=== PATIENT | male | born 1940 | race Two or more races ===

== ENCOUNTER 2021-04-23 20:44 | Emergency (ER) | payer OTHER, MEDICAID ==
[~2021-04-23] VITALS: Ht 167.6 cm; Wt 81.6 kg
[~2021-04-23 20:44] MED LIST: IBUP800T27
[2021-04-24] MEDS ORDERED: GENTAMICIN OPTH sol 0.3% 5ml EACHEYE ONE (01:00)
[2021-04-24 05:01] VITALS: BP 131/83
== END 2021-04-24 05:09 | disposition home or self-care (01) ==
LOC: ER 20:44
DX: H10.9 Unspecified conjunctivitis (principal); Z79.899 Other long term (current) drug therapy

== ENCOUNTER 2025-11-07 16:41 | Inpatient (IN) | payer OTHER, MEDICAID ==
[~2025-11-07] VITALS: Ht 167.6 cm; Wt 94.3 kg
[~2025-11-07 16:41] MED LIST changes: +IBUP-1456; -IBUP800T27
--- NOTE | 2025-11-07 17:15 | ED.PDOC ---
GI ASSESSMENT HPI Comments 85 y/o M, presents to the ED for CC of constipation. Patient states, he has been unable to have a bowel movement in x3days and is now experiencing diffuse abdominal pain. Patient reports, he was seen at Urgent Care for SS and was relayed to the ED for further evaluation and care. Patient denies nausea, vomiting, fever, or chills. No other symptoms or modifying factors are present at this time. Chief Complaint: Constipation Time Seen by MD: 17:00 Primary Care Provider: NONE Reviewed Notes: Nurses Notes, Medications, Allergies Allergies: Coded Allergies: NO KNOWN ALLERGIES (Unverified , 05/16/12) Home Meds Reported Medications Ibuprofen (Ibuprofen) 800 Mg Tab 05/16/12 Information Source: Patient Mode of Arrival: Wheelchair Timing: Days Duration: Since onset Prehospital treatment: None Vomitus: None Stool: Impaction Severity: Moderate Recent: None Recent Hx of: None Pain Location: Diffuse Modifying Factors: Nothing Associated sign and symptoms: Constipation, Abdominal Pain Past Medical History PAST MEDICAL HISTORY: Denies Family History Family History: Unknown Social History Smoker: Non-Smoker Alcohol: Occasionally Drugs: Denies Drug Use Lives In: Home Constitutional: denies: chills, diaphoresis, fatigue, fever, malaise, sweats, weakness, others EENTM: denies: blurred vision, double vision, ear bleeding, ear discharge, ear drainage, ear pain, ear ringing, eye pain, eye redness, hearing loss, mouth pain, mouth swelling, nasal discharge, nose bleeding, nose congestion, nose pain , photophobia, tearing, throat pain, throat swelling, voice changes, others Respiratory: denies: cough, hemoptysis, orthopnea, SOB at rest, shortness of breath, SOB with excertion, stridor, wheezing, others Cardiovascular: denies: chest pain, dizzy spells, diaphoresis, Dyspnea on exertion, edema, irregular heart beat, left arm pain, lightheadedness, palpitations, PND, syncope, others Gastrointestinal: reports: abdominal pain, constipated; denies: abdomen distended, blood streaked bowels, diarrhea, dysphagia, difficulty swallowing, hematemesis, melena, nausea, poor appetite, poor fluid intake, rectal bleeding, rectal pain, vomiting, others Genitourinary: denies: burning, dysuria, flank pain, frequency, hematuria, incontinence, penile discharge, penile sore, pain, testicle pain, testicle swelling, urgency, others Neurological: denies: dizziness, fainting, headache, left sided numbness, left sided weakness, numbness, paresthesia, pre-existing deficit, right sided numbness, right sided weakness, seizure, speech problems, tingling, tremors, weakness, others Musculoskeletal: denies: back pain, gout, joint pain, joint swelling, muscle pain, muscle stiffness, neck pain, others Integumetry: denies: bruises, change in color, change in hair/nails, dryness, laceration, lesions, lumps, rash, wounds, others Allergic/Immunocompromised: denies: Difficulty Healing, Frequent Infections, Hives, Itching, others Hematologic/Lymphatic: denies: anemia, blood clots, easy bleeding, easy bruising, swollen glands, others Endocrine: denies: excessive hunger, excessive sweating, excessive thirst, excessive urination, flushing, intolerance to cold, intolerance to heat, unexplained weight gain, unexplained weight loss, others Psychiatric: denies: anxiety, bipolar disorder, depression, hopeless, panic disorder, schizophrenia, sleepless, suicidal, others All Other Systems: Reviewed and Negative Physical Exam General Appearance: Moderate Distress HEENT: Normal ENT Inspection, Pharynx Normal, TMs Normal Neck: Full Range of Motion, Non-Tender, Normal, Normal Inspection Respiratory: Chest Non-Tender, Lungs Clear, No Accessory Muscle Use, No Respiratory Distress, Normal Breath Sounds Cardiovascular: No Edema, No JVD, No Murmur, No Gallop, Normal Peripheral P ulses, Regular Rate/Rhythm Breast Exam: Deferred Gastrointestinal: Distended, LLQ, No Organomegaly, No Pulsatile Mass, Normal Bowel Sounds, RLQ, Tenderness Genitalia: Deferred Pelvic: Deferred Rectal: Deferred Extremities: No calf tenderness, Normal capillary refill, No pedal edema Musculoskeletal : Apperance: Normal Neurologic: Alert, flat examiner II-XII nml as Tested, Motor Weakness, Normal Affect, Normal Mood, No Sensory Deficits Cerebellar Function: Normal Reflexes: Normal Skin: Dry, Normal Color, Warm Lymphatic: No Adenopathy Was a procedure done? Was a procedure done?: No GI differential Dx Differential Diagnosis: Bowel Obstruction, Constipation, Hernia X-Ray, Labs, Meds, VS Vital Signs Date Time Temp Pulse Resp B/P (MAP) Pulse Ox O2 Delivery O2 Flow Rate FiO2 11/07/25 18:42 89 15 148/86 11/07/25 18:18 87 99 Nasal Cannula* 2 28 11/07/25 18:17 97.9 87 15 148/78 (101) 99 97.9 11/07/25 16:52 98.1 93 20 160/100 92 98.1 Lab Test 11/07/25 17:30 Range/Units White Blood Count 7.7 4.4-10.8 10^3/uL Red Blood Count 4.90 4.5-5.90 10^6/uL Hemoglobin 15.6 13.5-17.5 g/dL Hematocrit 46.4 41.0-53.0 % Mean Corpuscular Volume 94.6 80.0-100.0 fL Mean Corpuscular Hemoglobin 31.8 28.0-32.0 pg Mean Corpuscular Hemoglobin Concent 33.6 32.0-36.0 g/dL Red Cell Distribution Width 13.8 11.8-14.3 % Platelet Count 156 140-450 10^3/uL Mean Platelet Volume 8.2 6.9-10.8 fL Neutrophils (%) (Auto) 67.0 37.0-80.0 % Lymphocytes (%) (Auto) 22.7 10.0-50.0 % Monocytes (%) (Auto) 9.5 0.0-12.0 % Eosinophils (%) (Auto) 0.4 0.0-7.0 % Basophils (%) (Auto) 0.4 0.0-2.0 % Neutrophils # (Auto) 5.2 1.6-8.6 10 ^3/uL Lymphocytes # (Auto) 1.7 0.4-5.4 10 ^3/uL Monocytes # (Auto) 0.7 0-1.3 10 ^3/uL Eosinophils # (Auto) 0 0-0.8 10 ^3/uL Basophils # (Auto) 0 0-0.2 10 ^3/uL Nucleated Red Blood Cells 0.1 % Sodium Level 136 136-145 mmol/L Potassium Level 3.4 L 3.5-5.1 mmol/L Chloride Level 100 98-107 mmol/L Carbon Dioxide Level 26 20-31 mmol/L Anion Gap 10 5-15 Blood Urea Nitrogen 7 L 9-23 mg/dL Creatinine 0.97 0.700-1.30 mg/dL Glomerular Filtration Rate Calc 77 >90 mL/min BUN/Creatinine Ratio 7.2 L 10.0-20.0 Serum Glucose 116 H 74-106 mg/dL Calcium Level 9.4 8.7-10.4 mg/dL Total Bilirubin 1.3 H 0.2-1.0 mg/dL Aspartate Amino Transferase (AST) 168 H 13-40 U/L Alanine Aminotransferase (ALT) 198 H 7-40 U/L Alkaline Phosphatase 253 H 46-116 U/L Total Protein 7.6 5.7-8.2 g/dL Albumin 4.2 3.2-4.8 g/dL Lipase 40 12-53 U/L Current Medications Medications (Trade) Dose Ordered Sig/Manny Route Start Time Stop Time Status Last Admin Ondansetron HCl (Zofran) 4 mg ONCE ONCE IV 11/07/25 17:15 11/07/25 17:16 DC 11/07/25 18:42 Morphine Sulfate 4 mg ONCE ONCE IV 11/07/25 17:15 11/07/25 17:16 DC 11/07/25 18:42 CT ABD PEL: FINDINGS: There is limited interpretation of the abdomen and pelvis without administration of intravenous contrast. Lung bases demonstrate atelectasis. Adrenal glands, spleen and pancreas unremarkable in shape. Liver punctate calcifications consistent with remote granulomatous disease. No CT evidence for cholelithiasis. No hydronephrosis/ nephrolithiasis. Stomach partially distended. Small bowel loops are normal in caliber. Large volume stool within the colon, especially descending and rectosigmoid colon. There is dilatation of the ascending colon, transverse colon up to 10 cm, possible early bowel pneumatosis. Normal appendix. Abdominal aortic atherosclerotic disease. Bladder distended. Prostate measures 6.3 cm transversely. No free pelvic fluid. No inguinal lymphadenopathy. [id number] bilateral sacroiliac degenerative joint disease. Fat containing left inguinal hernia measuring 2.7 x 1.9 cm. [id number] bilateral sacroiliac degenerative joint disease. Moderate to advanced thoracolumbar degenerative disc disease. Old posterior left 12th, 11th rib fractures. IMPRESSION: Limited evaluation without contrast. Large volume stool within the colon especially within the descending and rectosigmoid colon which can be secondary to constipation/ ileus. Correlate with clinical symptoms. There is marked distention of the ascending and transverse colon up to 10 cm and possibly early bowel pneumatosis. Correlate clinically to exclude ischemia. Recommend CT angiogram of the abdomen/pelvis to further evaluate and surgical evaluation. Atherosclerotic disease. Prostatomegaly. Correlate with PSA levels. Other findings as described. At this time, the patient has a CBC done which is within normal limits The chemistry panel is within normal limits accept for elevated enzymes with a total bilirubin of 1.3 The patient is being admitted The patient was given morphine for the pain and Zofran for the nausea The patient understands and agrees with the management Images Reviewed?: Images reviewed and evaluated by me Time of 1ST Reevaluation: 17:30 Reevaluation 1ST: Unchanged Patient Education/Counseling: Diagnosis, Treatment, Prognosis Family Education/Counseling: Diagnosis, Treatment, Prognosis SEPSIS Sepsis Screen Date sepsis recognized/suspect: Nov 07, 2025 Time Sepsis recognized/suspect: 1652 Recent Procedure: No On Antibiotic Therapy: No Respiratory Rate >20: No Heart Rate >90: No Temp<36 C (96.8 F) or >38.3 C: No SBP <90 or MAP <65 mmHG: No New Acute Mental Status Change: No Is the patient on CPAP, BIPAP,: No Physician Orders Urinalysis (11/07/25 17:13) Ct Ab Pel Wo Con-No Oral Or Iv (11/07/25 17:13) Heplock Iv (11/07/25 17:13) Vital Signs Date Time Temp Pulse Resp B/P (MAP) Pulse Ox O2 Delivery O2 Flow Rate FiO2 11/07/25 18:42 89 15 148/86 11/07/25 18:18 87 99 Nasal Cannula* 2 28 11/07/25 18:17 97.9 87 15 148/78 (101) 99 97.9 11/07/25 16:52 98.1 93 20 160/100 92 98.1 Laboratory Tests Test 11/07/25 17:30 White Blood Count 7.7 10^3/uL (4.4-10.8) Medications Medications Dose Ordered Sig/Manny Route Start Time Stop Time Status Last Admin Dose Admin Morphine Sulfate 4 mg ONCE ONCE IV 11/07/25 17:15 11/07/25 17:16 DC 11/07/25 18:42 Ondansetron HCl 4 mg ONCE ONCE IV 11/07/25 17:15 11/07/25 17:16 DC 11/07/25 18:42 Departure 1 Departure Time of Disposition: 18:57 Impression: Primary Impression: Intractable abdominal pain Additional Impressions: Fecal impaction Partial bowel obstruction Qualified Codes: K56.600 - Partial intestinal obstruction, unspecified as to cause Disposition: 09 ADMITTED INPATIENT Admit to: Med Surg Condition: Fair Critical Care Note Critical Care Time?: No Stability Stability form required: Yes Unstable for transfer: ED Physician Assesment (Clinical assesment) Heart Score Heart Score: Heart Score Response (Comments) Value History N/A 0 EKG N/A 0 Age N/A 0 Risk Factors N/A 0 Troponin N/A 0 Total 0 I personally scribed for MERRILL JUSTIN MD ([email or web address]) on 11/07/25 at 17:15. Electronically submitted by Marjorie Obando ([email or web address]). I personally scribed for MERRILL JUSTIN MD ([email or web address]) on 11/07/25 at 18:30. Electronically submitted by Marjorie Obando ([email or web address]). MERRILL JUSTIN MD Nov 07, 2025 17:15
[2025-11-07 17:40] LABS: Hematocrit 46.4 % (41.0-53.0); Hemoglobin 15.6 g/dL (13.5-17.5); Mean Corpuscular Hemoglobin 31.8 pg (28.0-32.0); Mean Corpuscular Volume 94.6 fL (80.0-100.0); Nucleated Red Blood Cells % 0.1 %
[2025-11-07 17:56] LABS: Albumin 4.2 g/dL (3.2-4.8); Anion Gap 10 (5-15); BUN/Creatinine Ratio 7.2 (10.0-20.0); Calcium 9.4 mg/dL (8.7-10.4); Carbon Dioxide 26 mmol/L (20-31); Chloride 100 mmol/L (98-107); Lipase 40 U/L (12-53); Total Protein 7.6 g/dL (5.7-8.2)
[2025-11-07 17:57] LABS: Alanine Aminotransferase 198 U/L (7-40); Alkaline Phosphatase 253 U/L (46-116); Bilirubin, Total 1.3 mg/dL (0.2-1.0); Blood Urea Nitrogen 7 mg/dL (9-23); Glucose 116 mg/dL (74-106); Potassium 3.4 mmol/L (3.5-5.1); Sodium 136 mmol/L (136-145)
--- NOTE | 2025-11-07 18:13 | DVH ---
INDICATION: pain TECHNIQUE: CT axial images of the abdomen and pelvis are obtained without contrast. Coronal and sagittal reformats were obtained. Radiation Dose Information: CTDI volume is 24.22 mGy. Dose-length product is 1259.61 mGy*cm COMPARISON: None FINDINGS: There is limited interpretation of the abdomen and pelvis without administration of intravenous contrast. Lung bases demonstrate atelectasis. Adrenal glands, spleen and pancreas unremarkable in shape. Liver punctate calcifications consistent with remote granulomatous disease. No CT evidence for cholelithiasis. No hydronephrosis/ nephrolithiasis. Stomach partially distended. Small bowel loops are normal in caliber. Large volume stool within the colon, especially descending and rectosigmoid colon. There is dilatation of the ascending colon, transverse colon up to 10 cm, possible early bowel pneumatosis. Normal appendix. Abdominal aortic atherosclerotic disease. Bladder distended. Prostate measures 6.3 cm transversely. No free pelvic fluid. No inguinal lymphadenopathy. [id number] bilateral sacroiliac degenerative joint disease. Fat containing left inguinal hernia measuring 2.7 x 1.9 cm. [id number] bilateral sacroiliac degenerative joint disease. Moderate to advanced thoracolumbar degenerative disc disease. Old posterior left 12th, 11th rib fractures. IMPRESSION: Limited evaluation without contrast. Large volume stool within the colon especially within the descending and rectosigmoid colon which can be secondary to constipation/ ileus. Correlate with clinical symptoms. There is marked distention of the ascending and transverse colon up to 10 cm and possibly early bowel pneumatosis. Correlate clinically to exclude ischemia. Recommend CT angiogram of the abdomen/pelvis to further evaluate and surgical evaluation. Atherosclerotic disease. Prostatomegaly. Correlate with PSA levels. Other findings as described.
[2025-11-07 18:18] VITALS: PULSE 87; O2SAT 99
[2025-11-07] MEDS: MORPHINE SULFATE 4 MG/ML SYR/VIAL IV ONE (18:42)
[2025-11-07] MEDS: ONDANSETRON HCL 4 MG/2 ML VIAL IV ONE (18:42)
[2025-11-07] MEDS: SODIUM CHLORIDE 0.9% 500 ML IVB ONE (19:20)
[2025-11-07 19:29] LABS: Urine Protein, UAD Negative (Negative)
[2025-11-07 20:30] VITALS: PULSE 89; O2SAT 98
[2025-11-07] MEDS ORDERED: ONDANSETRON HCL 4 MG/2 ML VIAL IV PRN (21:15)
--- NOTE | 2025-11-07 21:29 | DVHHP2 ---
History of Present Illness Reason for Visit: Intractable abdominal pain History of Present Illness The patient is a 85-year-old male with past medical history of depression and hypertension who presented to [facility] ED with complaint of constipation. Patient reports that he has been experiencing difficulty to have bowel movement for the past 3 days associated with diffuse abdominal pain. Patient reports, he was seen at Urgent Care for similar symptoms with no relief and was sent to the ED for further evaluation. Patient was seen and evaluated in the ED, laboratory data shows WBC 7.7, platelets 156, sodium 136, potassium 3.4, BUN 7, creatinine 0.97, GFR 77, glucose 116, calcium 9.4, lipase 40, total bilirubin 1.3, AST 168, ALT 198, alkaline phos 253, blood pressure 135/85, heart rate 85, temperature 97.9 F, O2 saturation 99% on oxygen. Abdomen/pelvis CT revealing large volume stool within the colon especially within the descending and rectosigmoid colon which can be secondary to constipation/ileus. Please see medication orders section in the computer. On my assessment, patient denied chest pain, no headache, dizziness, diaphoresis, currently on oxygen, no diarrhea, nausea, vomiting, fever, no chills. Patient was admitted for further evaluation and medical management. Past Medical History Depression, Hyperlipidemia Past Surgical History Denies all surgeries Family History Reviewed, noncontributory to the management of this case. Past Social History The patient lives at home, denies smoking, alcohol or illicit drugs abuse. Review of Systems Constitutional: No: Fever, Chills, Sweats, Weakness, Malaise, Other Eyes: No: Pain, Vision change, Conjunctivae inflammation, Eyelid inflammation, Other, Redness ENT: No: Ear pain, Ear discharge, Nose pain, Nose discharge, Nose congestion, Mouth pain, Mouth swelling, Throat pain, Throat swelling, Other Respiratory: No: Cough, Dry, Shortness of breath, SOB with excertion, Wheezing, Hemoptysis, Pleuritic Pain, Sputum, Wheezing, Other Cardiovascular: No: Chest Pain, Palpitations, Orthopnea, Paroxysmal Noc. Dyspnea, Edema, Lt Headedness, Other Gastrointestinal: Abdominal Pain, Constipation; No: Nausea, Vomiting, Diarrhea, Melena, Hematochezia, Other Genitourinary: No Dysuria, No Frequency, No Incontinence, No Hematuria, No Retention, No Other Musculoskeletal: No: other, neck pain, shoulder pain, arm pain, back pain, hand pain, leg pain, foot pain Skin: No: Rash, Lesions, Jaundice, Bruising, Other Neurological: No: Weakness, Numbness, Incoordination, Change in speech, Confusion, Seizures, Other Allergies: Coded Allergies: NO KNOWN ALLERGIES (Unverified , 05/16/12) Medications Current Medications Medications Dose Ordered Sig/Manny Route Start Time Stop Time Status Last Admin Dose Admin Tamsulosin HCl 0.4 mg QPM PO 11/08/25 18:00 UNV Duloxetine HCl 60 mg DAILY PO 11/08/25 10:00 UNV Trazodone HCl 50 mg HS PO 11/07/25 22:00 UNV Atorvastatin Calcium 40 mg HS PO 11/07/25 22:00 UNV Clopidogrel Bisulfate 75 mg DAILY PO 11/08/25 10:00 UNV Ibuprofen 400 mg Q6HP PRN PO 11/07/25 21:15 UNV Sodium Chloride 1,000 ml @ 60 mls/hr [id number] IV 11/07/25 21:15 UNV Ondansetron HCl 4 mg Q4HP PRN IV 11/07/25 21:15 UNV Docusate Sodium 100 mg BIDPRN PRN PO 11/07/25 21:15 UNV Exam Vital Signs Vital Signs Date Time Temp Pulse Resp B/P (MAP) Pulse Ox O2 Delivery O2 Flow Rate FiO2 11/07/25 19:12 85 15 135/85 11/07/25 18:18 99 Nasal Cannula* 2 28 11/07/25 18:17 97.9 97.9 General Appearance: Alert, Oriented X3, Cooperative, No acute distress HEENT: Atraumatic, PERRLA, EOMI, Mucous membr. moist/pink Respiratory: Normal air movement Cardiovascular: Regular rate, Normal S1, Normal S2, No murmurs Abdominal: Normal bowel sounds, Soft, No hepatospenomegaly, No masses, Other (Reports tenderness) Extremities: No clubbing, No cyanosis, No edema, Normal pulses, No tenderness/swelling Skin: No rashes, No significant lesion Neuro: Normal speech, Normal tone, Sensation intact, Cranial nerves 3-12 NL, Reflexes 2+, Other (Generalized weakness) Psych/Mental Status: Mental status NL, Mood NL Labs/Xrays Labs Test 11/07/25 18:54 11/07/25 17:30 Range/Units Urine Color Yellow Yellow Urine Clarity Clear Clear Urine pH 6.5 5.0-9.0 Urine Specific [place] 1.019 1.001-1.035 Urine Protein Negative Negative Urine Ketones Negative Negative Urine Blood Negative Negative /uL Urine Nitrite Negative Negative Urine Bilirubin Negative Negative Urine Urobilinogen 6 Negative mg/dL Urine Leukocyte Esterase Negative Negative /uL Urine RBC 2 0 - 3 /hpf Urine Microscopic WBC 1 0-3 /HPF Urine Squamous Epithelial Cells Few <5 /hpf Urine Bacteria None seen None Seen /hpf Urine Hyaline Casts Few 0 - 2 /lpf Urine Glucose Normal Normal mg/dL White Blood Count 7.7 4.4-10.8 10^3/uL Red Blood Count 4.90 4.5-5.90 10^6/uL Hemoglobin 15.6 13.5-17.5 g/dL Hematocrit 46.4 41.0-53.0 % Mean Corpuscular Volume 94.6 80.0-100.0 fL Mean Corpuscular Hemoglobin 31.8 28.0-32.0 pg Mean Corpuscular Hemoglobin Concent 33.6 32.0-36.0 g/dL Red Cell Distribution Width 13.8 11.8-14.3 % Platelet Count 156 140-450 10^3/uL Mean Platelet Volume 8.2 6.9-10.8 fL Neutrophils (%) (Auto) 67.0 37.0-80.0 % Lymphocytes (%) (Auto) 22.7 10.0-50.0 % Monocytes (%) (Auto) 9.5 0.0-12.0 % Eosinophils (%) (Auto) 0.4 0.0-7.0 % Basophils (%) (Auto) 0.4 0.0-2.0 % Neutrophils # (Auto) 5.2 1.6-8.6 10 ^3/uL Lymphocytes # (Auto) 1.7 0.4-5.4 10 ^3/uL Monocytes # (Auto) 0.7 0-1.3 10 ^3/uL Eosinophils # (Auto) 0 0-0.8 10 ^3/uL Basophils # (Auto) 0 0-0.2 10 ^3/uL Nucleated Red Blood Cells 0.1 % Sodium Level 136 136-145 mmol/L Potassium Level 3.4 L 3.5-5.1 mmol/L Chloride Level 100 98-107 mmol/L Carbon Dioxide Level 26 20-31 mmol/L Anion Gap 10 5-15 Blood Urea Nitrogen 7 L 9-23 mg/dL Creatinine 0.97 0.700-1.30 mg/dL Glomerular Filtration Rate Calc 77 >90 mL/min BUN/Creatinine Ratio 7.2 L 10.0-20.0 Serum Glucose 116 H 74-106 mg/dL Calcium Level 9.4 8.7-10.4 mg/dL Total Bilirubin 1.3 H 0.2-1.0 mg/dL Aspartate Amino Transferase (AST) 168 H 13-40 U/L Alanine Aminotransferase (ALT) 198 H 7-40 U/L Alkaline Phosphatase 253 H 46-116 U/L Total Protein 7.6 5.7-8.2 g/dL Albumin 4.2 3.2-4.8 g/dL Lipase 40 12-53 U/L PATIENT: ARIELLE EDWARDS ACCT: [id number] UNIT: [id number] : 1940 LOC: ER ROOM / BED: / AGE / SEX: 85 / M ADM STATUS: REG ER SERVICE 1713 ORDERING PHYSICIAN: MERRILL JUSTIN MD PROCEDURE(s): ABPL - CT AB PEL WO CON-NO ORAL OR IV REASON: pain ORDER NUMBER(s): [id number], ACCESSION NUMBER(s): [id number] INDICATION: pain TECHNIQUE: CT axial images of the abdomen and pelvis are obtained without contrast. Coronal and sagittal reformats were obtained. Radiation Dose Information: CTDI volume is 24.22 mGy. Dose-length product is 1259.61 mGy*cm COMPARISON: None FINDINGS: There is limited interpretation of the abdomen and pelvis without administration of intravenous contrast. Lung bases demonstrate atelectasis. Adrenal glands, spleen and pancreas unremarkable in shape. Liver punctate calcifications consistent with remote granulomatous disease. No CT evidence for cholelithiasis. No hydronephrosis/ nephrolithiasis. Stomach partially distended. Small bowel loops are normal in caliber. Large volume stool within the colon, especially descending and rectosigmoid colon. There is dilatation of the ascending colon, transverse colon up to 10 cm, possible early bowel pneumatosis. Normal appendix. Abdominal aortic atherosclerotic disease. Bladder distended. Prostate measures 6.3 cm transversely. No free pelvic fluid. No inguinal lymphadenopathy. [id number] bilateral sacroiliac degenerative joint disease. Fat containing left inguinal hernia measuring 2.7 x 1.9 cm. [id number] bilateral sacroiliac degenerative joint disease. Moderate to advanced thoracolumbar degenerative disc disease. Old posterior left 12th, 11th rib fractures. IMPRESSION: Limited evaluation without contrast. Large volume stool within the colon especially within the descending and rectosigmoid colon which can be secondary to constipation/ ileus. Correlate with clinical symptoms. There is marked distention of the ascending and transverse colon up to 10 cm and possibly early bowel pneumatosis. Correlate clinically to exclude ischemia. Recommend CT angiogram of the abdomen/pelvis to further evaluate and surgical evaluation. Atherosclerotic disease. Prostatomegaly. Correlate with PSA levels. Other findings as described. SEPSIS Sepsis Screen Date sepsis recognized/suspect: Nov 07, 2025 Time Sepsis recognized/suspect: 18:15 Recent Procedure: No On Antibiotic Therapy: No Respiratory Rate >20: No Heart Rate >90: No Temp<36 C (96.8 F) or >38.3 C: No SBP <90 or MAP <65 mmHG: No New Acute Mental Status Change: No Is the patient on CPAP, BIPAP,: No Physician Orders Ct Ab Pel Wo Con-No Oral Or Iv (11/07/25 17:13) Heplock Iv (11/07/25 17:13) Tamsulosin Hydrochloride (Flomax) (11/08/25 18:00) Duloxetine Hcl Capsule (Cymbalta Capsule (11/08/25 10:00) Trazodone Hcl (Desyrel) (11/07/25 22:00) Atorvastatin (Lipitor) (11/07/25 22:00) Potassium Er Tablet (Klor-Con Tablet) (11/07/25 21:15) Clopidogrel Bisulfate (Plavix) (11/08/25 10:00) Ibuprofen Tablet (Motrin Tablet) (11/07/25 21:15) Allergies (11/07/25 21:08) Code Status (11/07/25 21:08) Sodium Chloride 0.9% (11/07/25 21:15) Oxygen Per Hour (11/07/25 21:08) Ondansetron Hcl (Zofran) (11/07/25 21:15) Docusate Sodium Capsule (Colace Capsule) (11/07/25 21:15) Fall Risk Precautions In Place QSHIFT (11/07/25 21:08) Complete Blood Count (11/08/25 04:00) Comprehensive Metabolic Panel (11/08/25 04:00) Cardiac Diet-2gna,Lofat,Lochol (11/08/25 Breakfast) Condition: Serious (11/07/25 21:08) Maintain Bed Rest (11/07/25 21:08) Sequential Compression Device (11/07/25 ) Admit (11/07/25 21:27) Nitroglycerin Sublingual (Ntrostat Subli (11/07/25 21:30) Morphine Sulfate Injection (11/07/25 21:30) Notify Of Changes From Base (11/07/25 21:27) Emergency Dysrhythmia Protocol (11/07/25 21:27) Oxygen By Nasal Cannula (11/07/25 21:27) Vital Signs Date Time Temp Pulse Resp B/P (MAP) Pulse Ox O2 Delivery O2 Flow Rate FiO2 11/07/25 19:12 85 15 135/85 11/07/25 18:42 89 15 148/86 11/07/25 18:18 87 99 Nasal Cannula* 2 28 11/07/25 18:17 97.9 87 15 148/78 (101) 99 97.9 11/07/25 16:52 98.1 93 20 160/100 92 98.1 Laboratory Tests Test 11/07/25 17:30 White Blood Count 7.7 10^3/uL (4.4-10.8) Medications Medications Dose Ordered Sig/Manny Route Start Time Stop Time Status Last Admin Dose Admin Morphine Sulfate 4 mg ONCE ONCE IV 11/07/25 17:15 11/07/25 17:16 DC 11/07/25 18:42 4 MG Ondansetron HCl 4 mg ONCE ONCE IV 11/07/25 17:15 11/07/25 17:16 DC 11/07/25 18:42 4 MG Sodium Chloride 500 ml @ 500 mls/hr Q1H ONCE IVB 11/07/25 17:15 11/07/25 18:14 DC 11/07/25 19:20 500 MLS/HR Assessment/Plan Assessment/Plan Intractable abdominal pain Fecal impaction Partial bowel obstruction Ileus, unspecified Constipation Elevated liver enzymes Partial intestinal obstruction, unspecified as to cause Plan 1. Admit to med surge unit 2. Breathing treatment 3. Pain control management 4. Management of fluids and electrolytes 5. Consultation for surgery/hospitalist 6. Diagnostic tests abdomen/pelvis CT 7. DVT prophylaxis on SCDs 8. Repeat labs CBC, CMP in a.m. 9. Continue with current medical management 10. Treatment plan discussed with patient and RN. Patient verbalized understanding. Plan discussed with: Patient, Other (RN) My Orders Orders - KITTY MATHUR DNP Procedure Category Date Status Time Tamsulosin PHA 11/08/25 Logged Hydrochloride (Flomax) 18:00 Duloxetine Hcl PHA 11/08/25 Logged Capsule (Cymbalta 10:00 Trazodone Hcl PHA 11/07/25 Logged (Desyrel) 22:00 Atorvastatin (Lipitor) PHA 11/07/25 Logged 22:00 Potassium Er Tablet PHA 11/07/25 Logged (Klor-Con Tablet) 21:15 Clopidogrel Bisulfate PHA 11/08/25 Logged (Plavix) 10:00 Ibuprofen Tablet PHA 11/07/25 Logged (Motrin Tablet) 21:15 Allergies VIOLETTE 11/07/25 In Process 21:08 Code Status CODE 11/07/25 Transmitted 21:08 Sodium Chloride 0.9% PHA 11/07/25 Logged 21:15 Oxygen Per Hour RT 11/07/25 Transmitted 21:08 Ondansetron Hcl PHA 11/07/25 Logged (Zofran) 21:15 Docusate Sodium PHA 11/07/25 Logged Capsule (Colace 21:15 Fall Risk Precautions VIOLETTE 11/07/[address] 21:08 Complete Blood Count LAB 11/08/25 Verified 04:00 Comprehensive LAB 11/08/25 Verified Metabolic Panel 04:00 Cardiac DIET 11/08/25 Transmitted Diet-2gna,Lofat,Lochol Breakfast Condition: Serious VIOLETTE 11/07/25 In Process 21:08 Maintain Bed Rest VIOLETTE 11/07/25 In Process 21:08 Sequential VIOLETTE 11/07/25 In Process Compression Device Admit ADMIT 11/07/25 Verified 21:27 Nitroglycerin PHA 11/07/25 Verified Sublingual (Ntrostat 21:30 Morphine Sulfate PHA 12/18/25 Verified Injection 21:30 Notify Of Changes VIOLETTE 11/07/25 Verified From Base 21:27 Emergency Dysrhythmia VIOLETTE 11/07/25 Verified Protocol 21:27 Oxygen By Nasal RT 11/07/25 Verified Cannula 21:27 Problem List: (1) Intractable abdominal pain (2) Fecal impaction (3) Partial bowel obstruction (4) Ileus, unspecified (5) Constipation (6) Elevated liver enzymes (7) Partial intestinal obstruction, unspecified as to cause Date of Service: Nov 07, 2025 Billing Provider: KITTY MATHUR DNP Common Visit Codes: [id number] INP/OBS CARE (HIGH) KITTY MATHUR DNP Nov 07, 2025 21:29
[2025-11-07] MEDS ORDERED: MORPHINE SULFATE INJ 2 MG/ml SYRG IV PRN (21:30)
[2025-11-07] MEDS ORDERED: NITROGLYCERIN 0.4 MG SL TAB SL PRN (21:30)
[2025-11-07] MEDS: POTASSIUM CHL 20 Meq TABLET PO ONE (21:48)
[2025-11-07] MEDS: SODIUM CHLORIDE 0.9% 1,000 ML IV SCH (22:00)
[2025-11-07] MEDS: ATORVASTATIN 20 MG TAB PO SCH (22:09)
[2025-11-07] MEDS: IBUPROFEN 400 MG TAB PO PRN (23:34)
[2025-11-08] VITALS (9 sets, daily range): BP systolic 111–135; BP diastolic 72–84; PULSE 70–86; RESP 16–19; TEMP 97.1–98.3; O2SAT 92–97
[2025-11-08] MEDS: DOCUSATE SOD 100 MG CAP PO PRN (01:49)
[2025-11-08 06:57] LABS: Hematocrit 39.1 % (41.0-53.0); Hemoglobin 13.4 g/dL (13.5-17.5); Mean Corpuscular Hemoglobin 32.1 pg (28.0-32.0); Mean Corpuscular Volume 93.9 fL (80.0-100.0); Nucleated Red Blood Cells % 0.2 %
[2025-11-08 07:19] LABS: Anion Gap 9 (5-15); BUN/Creatinine Ratio 7.4 (10.0-20.0); Carbon Dioxide 28 mmol/L (20-31); Chloride 104 mmol/L (98-107); Glucose 95 mg/dL (74-106); Potassium 4.1 mmol/L (3.5-5.1); Sodium 141 mmol/L (136-145); Total Protein 5.9 g/dL (5.7-8.2)
[2025-11-08 07:20] LABS: Albumin 3.3 g/dL (3.2-4.8); Bilirubin, Total 0.9 mg/dL (0.2-1.0)
[2025-11-08 07:22] LABS: Alanine Aminotransferase 161 U/L (7-40); Alkaline Phosphatase 199 U/L (46-116); Blood Urea Nitrogen 7 mg/dL (9-23); Calcium 8.5 mg/dL (8.7-10.4)
[2025-11-08 09:09] LABS: INR 0.97 (0.9-1.15); Partial Thromboplastin Time 28.1 SEC (24.5-34.5); Prothrombin Time 10.3 sec (9.3-11.8)
[2025-11-08] MEDS: CLOPIDOGREL BISULFATE 75 MG TAB PO SCH (10:35)
[2025-11-08] MEDS: FLEET ENEMA(ADULT) 135 ML PR ONE ×2 (10:37→14:46)
[2025-11-08] MEDS ORDERED: ATOR-47 PO (11:04)
[2025-11-08] MEDS ORDERED: DULO1CAP6 PO (11:04)
[2025-11-08] MEDS ORDERED: TAMS0.4C39 PO (11:04)
[2025-11-08] MEDS ORDERED: ACET-1881 PO (11:04)
[2025-11-08] MEDS ORDERED: TRAZ-228 PO (11:04)
[2025-11-08] MEDS ORDERED: SENN-105 PO (11:04)
[2025-11-08] MEDS ORDERED: CLOP75TA70 (11:04)
[2025-11-08] MEDS ORDERED: FURO40TA4 PO (11:04)
[2025-11-08] MEDS ORDERED: DOCU-265 PO (11:04)
[2025-11-08] MEDS ORDERED: CHOL20007 OR (11:07)
--- NOTE | 2025-11-08 12:13 | DVHPN2 ---
Reviewed: Care Plan, H&P, Labs, Medications, Previous Orders, Radiology Changes from previous H/P or p: No Changes Eyes: No Pain, No Vision change, No Conjunctivae inflammation, No Eyelid inflammation, No Other, No Redness ENT: No Ear pain, No Ear discharge, No Nose pain, No Nose discharge, No Nose congestion, No Mouth pain, No Mouth swelling, No Throat pain, No Throat swelling, No Other Cardiovascular: No Chest Pain, No Palpitations, No Orthopnea, No Paroxysmal Noc. Dyspnea, No Edema, No Lt Headedness, No Other Respiratory: No Cough, No Dry, No Shortness of breath, No SOB with excertion, No Wheezing, No Hemoptysis, No Pleuritic Pain, No Sputum, No Other Gastrointestinal: No Nausea, No Vomiting; Abdominal Pain; No Diarrhea; C onstipation; No Melena, No Hematochezia, No Other Genitourinary: No Dysuria, No Frequency, No Incontinence, No Hematuria, No Retention, No Other Musculoskeletal: No other, No neck pain, No shoulder pain, No arm pain, No back pain, No hand pain, No leg pain, No foot pain Skin: No Rash, No Lesions, No Jaundice, No Bruising, No Other Objective Vitals Vital Signs Date Time Temp Pulse Resp B/P (MAP) Pulse Ox O2 Delivery O2 Flow Rate FiO2 11/08/25 08:40 97.6 75 17 127/72 (90) 97 97.6 11/08/25 00:01 Room Air* 0 21 Intake/Output Intake and Output 11/08/25 07:00 Intake Total 1040 ml Output Total 350 ml Balance 690 ml Intake Oral 480 ml IV Total 560 ml Output Urine Total 350 ml Medications Current Medications Medications Dose Ordered Sig/Manny Route Start Time Stop Time Status Last Admin Dose Admin Tamsulosin HCl 0.4 mg QPM PO 11/08/25 18:00 Duloxetine HCl 60 mg DAILY PO 11/08/25 10:00 11/08/25 10:35 60 MG Trazodone HCl 50 mg HS PO 11/07/25 22:00 11/07/25 22:10 50 MG Atorvastatin Calcium 40 mg HS PO 11/07/25 22:00 11/07/25 22:09 40 MG Clopidogrel Bisulfate 75 mg DAILY PO 11/08/25 10:00 11/08/25 10:35 75 MG Ibuprofen 400 mg Q6HP PRN PO 11/07/25 21:15 11/07/25 23:34 400 MG Sodium Chloride 1,000 ml @ 60 mls/hr [id number] IV 11/07/25 21:15 11/07/25 22:00 60 MLS/HR Ondansetron HCl 4 mg Q4HP PRN IV 11/07/25 21:15 Docusate Sodium 100 mg BIDPRN PRN PO 11/07/25 21:15 11/08/25 01:49 100 MG Nitroglycerin 0.4 mg Q5MINP PRN SL 11/07/25 21:30 Morphine Sulfate 2 mg Q30M PRN IV 11/07/25 21:30 Laboratory Results Laboratory Tests 11/08/25 06:01 Chemistry Test 11/07/25 17:30 11/08/25 06:01 Albumin 4.2 g/dL (3.2-4.8) 3.3 g/dL (3.2-4.8) Calcium Level 9.4 mg/dL (8.7-10.4) 8.5 mg/dL (8.7-10.4) L Total Protein 7.6 g/dL (5.7-8.2) 5.9 g/dL (5.7-8.2) Coagulation Test 11/08/25 06:01 Prothrombin Time 10.3 sec (9.3-11.8) Prothrombin Time INR 0.97 (0.9-1.15) Activated Partial Thromboplast Time 28.1 SEC (24.5-34.5) Lipid panel Test 11/07/25 17:30 Lipase 40 U/L (12-53) LFT Test 11/07/25 17:30 11/08/25 06:01 Alanine Aminotransferase (ALT) 198 U/L (7-40) H 161 U/L (7-40) H Alkaline Phosphatase 253 U/L (46-116) H 199 U/L (46-116) H Aspartate Amino Transferase (AST) 168 U/L (13-40) H 130 U/L (13-40) H Total Bilirubin 1.3 mg/dL (0.2-1.0) H 0.9 mg/dL (0.2-1.0) Urinalysis Test 11/07/25 18:54 Urine Color Yellow (Yellow) Urine Clarity Clear (Clear) Urine pH 6.5 (5.0-9.0) Urine Specific [place] 1.019 (1.001-1.035) Urine Protein Negative (Negative) Urine Ketones Negative (Negative) Urine Blood Negative /uL (Negative) Urine Nitrite Negative (Negative) Urine Bilirubin Negative (Negative) Urine Urobilinogen 6 mg/dL (Negative) Urine Leukocyte Esterase Negative /uL (Negative) Urine RBC 2 /hpf (0 - 3) Urine Microscopic WBC 1 /HPF (0-3) Urine Squamous Epithelial Cells Few /hpf (<5) Urine Bacteria None seen /hpf (None Seen) Urine Hyaline Casts Few /lpf (0 - 2) Urine Glucose Normal mg/dL (Normal) Labs and/or images reviewed: Labs reviewed by me, Image(s) reviewed by me Assessment/Plan Assessment/Plan Intractable abdominal pain Fecal impaction status post enema Partial bowel obstruction surgical consult, GI consult Ileus, unspecified Constipation Cholesterol BPH Elevated liver enzymes gallbladder ultrasound Partial intestinal obstruction, unspecified as to cause Patient lives alone Time Spent 68 minutes Advanced care planning time 20 minutes Patient is full code Plan discussed with: Patient Date of Service: Nov 08, 2025 Billing Provider: KAHLIL TRAN MD Common Visit Codes: [id number] CARE 30-74 MIN KAHLIL TRAN MD Nov 08, 2025 12:13
--- NOTE | 2025-11-08 12:32 | DVHINCON2 ---
GI Consult Consult Note GI consult note Date of Consultation: 11/08/2025 Chief Complaint: Constipation/abdominal pain Referring Physician: Dr. Kitty Tran H&P: 85-year-old Lithuanian-speaking male, family at bedside translating, admitted with complains of constipation and abdominal distention. Patient admits to not having bowel movement for the past four days. Patient has history of constipation usually treated with Colace which helps him. No nausea or vomiting . Unsure if colonoscopy in past. No melena or red blood in stool. Denies fevers or chills Past Medical History: Depression, hyperlipidemia Past Surgical History: Denies Social History: NO smoking, drinking ETOH and use of illegal drugs. Family History: Noncontributory Review of Systems: Constitutional: no fever, chill, weight loss HEENT: no eye pain, no hearing loss, no oral lesion, no scleral icterus Heart: no chest pain, no chest pressure Lung: no cough, no dyspnea with exertion Abdomen: see HPI Physical exam: General: NAD, AAOX3 Chest: lung villanue[place] clear to auscultation Heart: RRR, no murmur Abdomen: Moderate-distended, minimal generalized tenderness to palpation, + hyperactive BS Labs: Labs Test 11/08/25 06:01 11/07/25 18:54 11/07/25 17:30 Range/Units White Blood Count 6.3 4.4-10.8 10^3/uL Red Blood Count 4.16 L 4.5-5.90 10^6/uL Hemoglobin 13.4 L 13.5-17.5 g/dL Hematocrit 39.1 #L 41.0-53.0 % Mean Corpuscular Volume 93.9 80.0-100.0 fL Mean Corpuscular Hemoglobin 32.1 H 28.0-32.0 pg Mean Corpuscular Hemoglobin Concent 34.2 32.0-36.0 g/dL Red Cell Distribution Width 14.0 11.8-14.3 % Platelet Count 132 L 140-450 10^3/uL Mean Platelet Volume 8.4 6.9-10.8 fL Neutrophils (%) (Auto) 55.0 37.0-80.0 % Lymphocytes (%) (Auto) 26.2 10.0-50.0 % Monocytes (%) (Auto) 16.8 H 0.0-12.0 % Eosinophils (%) (Auto) 1.5 0.0-7.0 % Basophils (%) (Auto) 0.5 0.0-2.0 % Neutrophils # (Auto) 3.5 1.6-8.6 10 ^3/uL Lymphocytes # (Auto) 1.6 0.4-5.4 10 ^3/uL Monocytes # (Auto) 1.1 0-1.3 10 ^3/uL Eosinophils # (Auto) 0.1 0-0.8 10 ^3/uL Basophils # (Auto) 0 0-0.2 10 ^3/uL Nucleated Red Blood Cells 0.2 % Prothrombin Time 10.3 9.3-11.8 sec Prothrombin Time INR 0.97 0.9-1.15 Activated Partial Thromboplast Time 28.1 24.5-34.5 SEC Sodium Level 141 # 136-145 mmol/L Potassium Level 4.1 3.5-5.1 mmol/L Chloride Level 104 98-107 mmol/L Carbon Dioxide Level 28 20-31 mmol/L Anion Gap 9 5-15 Blood Urea Nitrogen 7 L 9-23 mg/dL Creatinine 0.95 0.700-1.30 mg/dL Glomerular Filtration Rate Calc 78 >90 mL/min BUN/Creatinine Ratio 7.4 L 10.0-20.0 Serum Glucose 95 74-106 mg/dL Calcium Level 8.5 L 8.7-10.4 mg/dL Total Bilirubin 0.9 0.2-1.0 mg/dL Aspartate Amino Transferase (AST) 130 H 13-40 U/L Alanine Aminotransferase (ALT) 161 H 7-40 U/L Alkaline Phosphatase 199 H 46-116 U/L Total Protein 5.9 5.7-8.2 g/dL Albumin 3.3 3.2-4.8 g/dL Urine Color Yellow Yellow Urine Clarity Clear Clear Urine pH 6.5 5.0-9.0 Urine Specific [place] 1.019 1.001-1.035 Urine Protein Negative Negative Urine Ketones Negative Negative Urine Blood Negative Negative /uL Urine Nitrite Negative Negative Urine Bilirubin Negative Negative Urine Urobilinogen 6 Negative mg/dL Urine Leukocyte Esterase Negative Negative /uL Urine RBC 2 0 - 3 /hpf Urine Microscopic WBC 1 0-3 /HPF Urine Squamous Epithelial Cells Few <5 /hpf Urine Bacteria None seen None Seen /hpf Urine Hyaline Casts Few 0 - 2 /lpf Urine Glucose Normal Normal mg/dL Lipase 40 12-53 U/L Imaging: CT abdomen pelvis IMPRESSION: Limited evaluation without contrast. Large volume stool within the colon especially within the descending and rectosigmoid colon which can be secondary to constipation/ ileus. Correlate with clinical symptoms. There is marked distention of the ascending and transverse colon up to 10 cm and possibly early bowel pneumatosis. Correlate clinically to exclude ischemia. Recommend CT angiogram of the abdomen/pelvis to further evaluate and surgical evaluation. Atherosclerotic disease. Prostatomegaly. Correlate with PSA levels. Other findings as described. Assessment: Abdominal pain Fecal impaction Partial bowel obstruction Ileus Elevated liver enzyme Plan: Discussed with Dr. Alex RODRIGUEZ MiraLax NPO If needed NGT to LIS Abdominal ultrasound And hepatitis panel for elevated LFTs We will continue to monitor patient Plan discussed with patient, family at bedside and RN Thank you for this consult Date of Service: Nov 08, 2025 Billing Provider: ANISA TRAN Common Visit Codes: CONSULT ONLY Consultation Codes: [id number] CONSULT <60MIN ANISA TRAN Nov 08, 2025 12:32
--- NOTE | 2025-11-08 12:40 | DVHINCON2 ---
Date of service: Nov 08, 2025 History of Present Illness 85-year-old male with a history of constipation admitted secondary to no bowel movement for past four days with the abdominal distention and pain. Patient denies any fevers, chills, nausea or vomiting. This morning patient had a large BM. Past Medical History Depression Past Surgical History No recent abdominal surgery Family History: Patient reports no known family medical history. Family History Noncontributory Social History No alcohol, tobacco, IV drug use Allergies: Coded Allergies: NO KNOWN ALLERGIES (Unverified , 05/16/12) Home Meds Reported Medications Cholecalciferol (VITAMIN D3) 2,000 Unit Tab, 2000 UNIT OR, TAB 11/08/25 Furosemide (Furosemide) 40 Mg Tab, 1 TAB PO DAILY, #30 TAB 5 Refills 11/08/25 Acetaminophen (Acetaminophen) 325 Mg Tab, 1 TAB PO Q8HPRN PRN for PAIN SCALE 1-3 OR TEMP>100.4 11/08/25 Atorvastatin Calcium (ATORVASTATIN CALCIUM) 80 Mg Tab, 1 TAB PO 11/08/25 Clopidogrel Bisulfate (CLOPIDOGREL) 75 Mg Tab 11/08/25 Tamsulosin Hcl (Tamsulosin Hcl) 0.4 Mg Cap, 1 CAP PO DAILY 11/08/25 Docusate Sodium (Docusate Sodium) 100 Mg Cap, 1 CAP PO TID PRN for FOR CONSTIPATION 11/08/25 Trazodone Hcl (Trazodone Hcl) 100 Mg Tab, 0.5 TAB PO QHSP PRN for FOR INSOMNIA 11/08/25 Senna (Senna) 8.6 Mg Tab, 2 TAB PO 11/08/25 Duloxetine HCl (Duloxetine HCl) 60 Mg Cap, 1 CAP PO DAILY 11/08/25 Ibuprofen (Ibuprofen) 800 Mg Tab 05/16/12 Current Medications Current Medications Medications (Trade) Dose Ordered Sig/Manny Route PRN Reason Start Time Stop Time Status Last Admin Tamsulosin HCl (Flomax) 0.4 mg QPM PO 11/08/25 18:00 Duloxetine HCl (Cymbalta Capsule) 60 mg DAILY PO 11/08/25 10:00 11/08/25 10:35 Trazodone HCl (Desyrel) 50 mg HS PO 11/07/25 22:00 11/07/25 22:10 Atorvastatin Calcium (Lipitor) 40 mg HS PO 11/07/25 22:00 11/07/25 22:09 Clopidogrel Bisulfate (Plavix) 75 mg DAILY PO 11/08/25 10:00 11/08/25 10:35 Ibuprofen (Motrin Tablet) 400 mg Q6HP PRN PO PAIN SCALE 1-3 OR TEMP>100.4 11/07/25 21:15 11/07/25 23:34 Sodium Chloride 1,000 ml @ 60 mls/hr [id number] IV 11/07/25 21:15 11/07/25 22:00 Ondansetron HCl (Zofran) 4 mg Q4HP PRN IV NAUSEA / VOMITING 11/07/25 21:15 Docusate Sodium (Colace Capsule) 100 mg BIDPRN PRN PO FOR CONSTIPATION 11/07/25 21:15 11/08/25 01:49 Nitroglycerin (Ntrostat Sublingual) 0.4 mg Q5MINP PRN SL FOR CHEST PAIN 11/07/25 21:30 Morphine Sulfate 2 mg Q30M PRN IV FOR CHEST PAIN 11/07/25 21:30 Vital Signs Vital Signs Date Time Temp Pulse Resp B/P (MAP) Pulse Ox O2 Delivery O2 Flow Rate FiO2 11/08/25 12:34 97.3 83 17 135/84 (101) 93 97.3 11/08/25 00:01 Room Air* 0 21 Physical Exam GEN: Age-appropriate male in no acute distress. Alert. HEENT: Normocephalic atraumatic. Moist mucous membranes. Anicteric sclerae. CV: RRR Respiratory: CTAB ABD: Obese abdomen with moderate distention. Soft. Nontender. CT of the abdomen and pelvis: Marked distention of the ascending and transverse colon up to 10 cm with possible early bowel pneumatosis. Large volume stool within the colon especially the within the descending and rectosigmoid colon. Labs/Diagnostic Data Labs Test 11/08/25 06:01 11/07/25 18:54 11/07/25 17:30 Range/Units White Blood Count 6.3 4.4-10.8 10^3/uL Red Blood Count 4.16 L 4.5-5.90 10^6/uL Hemoglobin 13.4 L 13.5-17.5 g/dL Hematocrit 39.1 #L 41.0-53.0 % Mean Corpuscular Volume 93.9 80.0-100.0 fL Mean Corpuscular Hemoglobin 32.1 H 28.0-32.0 pg Mean Corpuscular Hemoglobin Concent 34.2 32.0-36.0 g/dL Red Cell Distribution Width 14.0 11.8-14.3 % Platelet Count 132 L 140-450 10^3/uL Mean Platelet Volume 8.4 6.9-10.8 fL Neutrophils (%) (Auto) 55.0 37.0-80.0 % Lymphocytes (%) (Auto) 26.2 10.0-50.0 % Monocytes (%) (Auto) 16.8 H 0.0-12.0 % Eosinophils (%) (Auto) 1.5 0.0-7.0 % Basophils (%) (Auto) 0.5 0.0-2.0 % Neutrophils # (Auto) 3.5 1.6-8.6 10 ^3/uL Lymphocytes # (Auto) 1.6 0.4-5.4 10 ^3/uL Monocytes # (Auto) 1.1 0-1.3 10 ^3/uL Eosinophils # (Auto) 0.1 0-0.8 10 ^3/uL Basophils # (Auto) 0 0-0.2 10 ^3/uL Nucleated Red Blood Cells 0.2 % Prothrombin Time 10.3 9.3-11.8 sec Prothrombin Time INR 0.97 0.9-1.15 Activated Partial Thromboplast Time 28.1 24.5-34.5 SEC Sodium Level 141 # 136-145 mmol/L Potassium Level 4.1 3.5-5.1 mmol/L Chloride Level 104 98-107 mmol/L Carbon Dioxide Level 28 20-31 mmol/L Anion Gap 9 5-15 Blood Urea Nitrogen 7 L 9-23 mg/dL Creatinine 0.95 0.700-1.30 mg/dL Glomerular Filtration Rate Calc 78 >90 mL/min BUN/Creatinine Ratio 7.4 L 10.0-20.0 Serum Glucose 95 74-106 mg/dL Calcium Level 8.5 L 8.7-10.4 mg/dL Total Bilirubin 0.9 0.2-1.0 mg/dL Aspartate Amino Transferase (AST) 130 H 13-40 U/L Alanine Aminotransferase (ALT) 161 H 7-40 U/L Alkaline Phosphatase 199 H 46-116 U/L Total Protein 5.9 5.7-8.2 g/dL Albumin 3.3 3.2-4.8 g/dL Urine Color Yellow Yellow Urine Clarity Clear Clear Urine pH 6.5 5.0-9.0 Urine Specific [place] 1.019 1.001-1.035 Urine Protein Negative Negative Urine Ketones Negative Negative Urine Blood Negative Negative /uL Urine Nitrite Negative Negative Urine Bilirubin Negative Negative Urine Urobilinogen 6 Negative mg/dL Urine Leukocyte Esterase Negative Negative /uL Urine RBC 2 0 - 3 /hpf Urine Microscopic WBC 1 0-3 /HPF Urine Squamous Epithelial Cells Few <5 /hpf Urine Bacteria None seen None Seen /hpf Urine Hyaline Casts Few 0 - 2 /lpf Urine Glucose Normal Normal mg/dL Lipase 40 12-53 U/L Assessment 1. Severe obstipation slowly improving Plan/Recommendation 1. Continue bowel regimen. Plan discussed with: Patient JUAN CARLOS SANTSO MD Nov 08, 2025 12:40
--- NOTE | 2025-11-08 13:01 | DVH ---
INDICATION: elevated LFTs TECHNIQUE: Multiple real-time sonographic images were obtained of the right upper quadrant. COMPARISON: None FINDINGS: The liver demonstrates heterogeneous echotexture without focal mass lesions. There is no intrahepatic or extrahepatic ductal dilatation. The common duct measures 6.2 mm. The gallbladder is without evidence of stone or sludge. The gallbladder wall measures 2.9 mm and is within normal limits. The right kidney measures 9.8 cm. The right kidney is normal in contour, size, and shape. The echogenicity is normal. There is no hydronephrosis. The pancreas is not well visualized due to overlying bowel gas. IMPRESSION: 1. No sonographic evidence of gallstones or acute cholecystitis. 2. Hepatic steatosis.
[2025-11-08 13:30] LABS: Hepatitis A Total Antibody Positive (Negative); Hepatitis B Surface Antigen Negative (Negative); Hepatitis C Antibody Negative (Negative)
[2025-11-08] MEDS: POLYETHYLENE GLYCOL 17 GM PWDR PO ONE (14:46)
--- NOTE | 2025-11-08 16:21 | DVH ---
Date: 11/08/2025 03:22 PM Examination: XY KUB ABDOMEN SINGLE VIEW History: abd pain constipation COMPARISON: None TECHNIQUE: Frontal views of the abdomen was obtained. FINDINGS: Bowel gas pattern is unremarkable. The lung bases are unremarkable. No acute osseous abnormality identified. Bony spondylosis and degenerative disc changes IMPRESSION: 1. Nonobstructive bowel gas pattern. 2. Scattered stool throughout the colon may represent constipation
[2025-11-08] MEDS: TAMSULOSIN HYDROCHLORIDE 0.4 MG CAP PO SCH (18:19)
[2025-11-09] VITALS (7 sets, daily range): BP systolic 112–147; BP diastolic 73–95; PULSE 67–80; RESP 16–18; TEMP 97.3–98; O2SAT 93–97
--- NOTE | 2025-11-09 10:08 | DVHPN2 ---
Reviewed: Care Plan, H&P, Labs, Medications, Previous Orders, Radiology Changes from previous H/P or p: No Changes Eyes: No Pain, No Vision change, No Conjunctivae inflammation, No Eyelid inflammation, No Other, No Redness ENT: No Ear pain, No Ear discharge, No Nose pain, No Nose discharge, No Nose congestion, No Mouth pain, No Mouth swelling, No Throat pain, No Throat swelling, No Other Cardiovascular: No Chest Pain, No Palpitations, No Orthopnea, No Paroxysmal Noc. Dyspnea, No Edema, No Lt Headedness, No Other Respiratory: No Cough, No Dry, No Shortness of breath, No SOB with excertion, No Wheezing, No Hemoptysis, No Pleuritic Pain, No Sputum, No Other Gastrointestinal: No Nausea, No Vomiting; Abdominal Pain; No Diarrhea; C onstipation; No Melena, No Hematochezia, No Other Genitourinary: No Dysuria, No Frequency, No Incontinence, No Hematuria, No Retention, No Other Musculoskeletal: No other, No neck pain, No shoulder pain, No arm pain, No back pain, No hand pain, No leg pain, No foot pain Skin: No Rash, No Lesions, No Jaundice, No Bruising, No Other Objective Vitals Vital Signs Date Time Temp Pulse Resp B/P (MAP) Pulse Ox O2 Delivery O2 Flow Rate FiO2 11/09/25 08:00 80 18 93 Room Air* 0 21 11/09/25 05:00 97.4 123/75 (91) 97.4 Intake/Output Intake and Output 11/09/25 07:00 Intake Total 2340 ml Output Total 2070 ml Balance 270 ml Intake Oral 1100 ml IV Total 1240 ml Output Urine Total 2070 ml # Bowel Movements 2 Medications Current Medications Medications Dose Ordered Sig/Manny Route Start Time Stop Time Status Last Admin Dose Admin Tamsulosin HCl 0.4 mg QPM PO 11/08/25 18:00 11/08/25 18:19 0.4 MG Duloxetine HCl 60 mg DAILY PO 11/08/25 10:00 11/08/25 10:35 60 MG Trazodone HCl 50 mg HS PO 11/07/25 22:00 11/08/25 21:17 50 MG Atorvastatin Calcium 40 mg HS PO 11/07/25 22:00 11/08/25 21:17 40 MG Clopidogrel Bisulfate 75 mg DAILY PO 11/08/25 10:00 11/08/25 10:35 75 MG Ibuprofen 400 mg Q6HP PRN PO 11/07/25 21:15 11/08/25 18:19 400 MG Sodium Chloride 1,000 ml @ 60 mls/hr [id number] IV 11/07/25 21:15 11/08/25 14:47 60 MLS/HR Ondansetron HCl 4 mg Q4HP PRN IV 11/07/25 21:15 Docusate Sodium 100 mg BIDPRN PRN PO 11/07/25 21:15 11/08/25 21:17 100 MG Nitroglycerin 0.4 mg Q5MINP PRN SL 11/07/25 21:30 Morphine Sulfate 2 mg Q30M PRN IV 11/07/25 21:30 Laboratory Results Laboratory Tests 11/08/25 06:01 Urinalysis Test 11/07/25 18:54 Urine Color Yellow (Yellow) Urine Clarity Clear (Clear) Urine pH 6.5 (5.0-9.0) Urine Specific [place] 1.019 (1.001-1.035) Urine Protein Negative (Negative) Urine Ketones Negative (Negative) Urine Blood Negative /uL (Negative) Urine Nitrite Negative (Negative) Urine Bilirubin Negative (Negative) Urine Urobilinogen 6 mg/dL (Negative) Urine Leukocyte Esterase Negative /uL (Negative) Urine RBC 2 /hpf (0 - 3) Urine Microscopic WBC 1 /HPF (0-3) Urine Squamous Epithelial Cells Few /hpf (<5) Urine Bacteria None seen /hpf (None Seen) Urine Hyaline Casts Few /lpf (0 - 2) Urine Glucose Normal mg/dL (Normal) Labs and/or images reviewed: Labs reviewed by me, Image(s) reviewed by me Assessment/Plan Assessment/Plan Intractable abdominal pain Fecal impaction status post enema, patient has had a good bowel movement today and feels better Partial bowel obstruction surgical consult by Dr. Beltre appreciated Ileus, unspecified Constipation Cholesterol BPH Elevated liver enzymes gallbladder ultrasound shows no gallstones or cholecystitis, GI consult by Dr. Chase Johnson appreciated Partial intestinal obstruction, unspecified as to cause Patient lives alone in a trailer Time Spent 68 minutes Advanced care planning time 20 minutes Patient is full code Plan discussed with: Patient My Orders Orders - KAHLIL TRAN MD Procedure Category Date Status Time * Gi D[facility] Sales Planning Manager CONS 11/08/25 Transmitted 12:06 * Surgical Consult CONS 11/08/25 Transmitted 12:14 Date of Service: Nov 09, 2025 Billing Provider: KAHLIL TRAN MD Common Visit Codes: [id number] INP/OBS CARE(HIGH) KAHLIL TRAN MD Nov 09, 2025 10:08
--- NOTE | 2025-11-09 11:10 | DVHPN2 ---
Progress Note - Dictate Date Seen: Nov 09, 2025 Medical Necessity Reason Pt with a Central, PICC or Fol: No Subjective E: no major events o/n. +BM feels better. vital signs Vital Sign Date Time Temp Pulse Resp B/P (MAP) Pulse Ox O2 Delivery O2 Flow Rate FiO2 11/09/25 08:00 80 18 93 Room Air* 0 21 11/09/25 05:00 97.4 123/75 (91) 97.4 Total Intake and Output 11/08/25 11/08/25 11/09/25 15:00 23:00 07:00 Intake Total 940 ml 400 ml 1000 ml Output Total 1020 ml 1050 ml Balance 940 ml -620 ml -50 ml medications Current Medications Medications Dose Ordered Sig/Manny Route Start Time Stop Time Status Last Admin Dose Admin Tamsulosin HCl 0.4 mg QPM PO 11/08/25 18:00 11/08/25 18:19 0.4 MG Duloxetine HCl 60 mg DAILY PO 11/08/25 10:00 11/08/25 10:35 60 MG Trazodone HCl 50 mg HS PO 11/07/25 22:00 11/08/25 21:17 50 MG Atorvastatin Calcium 40 mg HS PO 11/07/25 22:00 11/08/25 21:17 40 MG Clopidogrel Bisulfate 75 mg DAILY PO 11/08/25 10:00 11/08/25 10:35 75 MG Ibuprofen 400 mg Q6HP PRN PO 11/07/25 21:15 11/08/25 18:19 400 MG Sodium Chloride 1,000 ml @ 60 mls/hr [id number] IV 11/07/25 21:15 11/08/25 14:47 60 MLS/HR Ondansetron HCl 4 mg Q4HP PRN IV 11/07/25 21:15 Docusate Sodium 100 mg BIDPRN PRN PO 11/07/25 21:15 11/08/25 21:17 100 MG Nitroglycerin 0.4 mg Q5MINP PRN SL 11/07/25 21:30 Morphine Sulfate 2 mg Q30M PRN IV 11/07/25 21:30 objective GEN: NAD ABD: stephen. NT. laboratory and microbiology Laboratory Tests 11/08/25 06:01 Test 11/08/25 06:01 Range/Units Serum Glucose 95 74-106 mg/dL Assessment/Plan A: 1. Severe obstipation slowly improving P: 1. no acute surgical issues. surgery signing off. Plan discussed with: Patient JUAN CARLOS SANTOS MD Nov 09, 2025 11:10
[2025-11-10 01:00] VITALS: BP 106/65; PULSE 90; RESP 19; TEMP 97.5; O2SAT 97
[2025-11-10 05:00] VITALS: BP 133/89; PULSE 70; RESP 19; TEMP 97.8; O2SAT 95
[2025-11-10 08:00] VITALS: PULSE 76; RESP 18; O2SAT 97
[2025-11-10 09:00] VITALS: BP 146/72; PULSE 76; RESP 18; TEMP 97.9; O2SAT 97
[2025-11-10] MEDS ORDERED: DOCU-94 PO (11:10)
[2025-11-10] MEDS ORDERED: LACT10PA2 PO (11:11)
--- NOTE | 2025-11-10 11:15 | DVHDS2 ---
Discharge Summary Date of Admission Nov 07, 2025 at 21:27 Date of Discharge: Nov 10, 2025 Admitting Diagnosis Abdominal pain Wounds: None Labs/Diagnostic Data: Laboratory Results Test 11/08/25 06:01 11/07/25 18:54 11/07/25 17:30 White Blood Count 6.3 10^3/uL (4.4-10.8) Red Blood Count 4.16 10^6/uL (4.5-5.90) Hemoglobin 13.4 g/dL (13.5-17.5) Hematocrit 39.1 % (41.0-53.0) Mean Corpuscular Volume 93.9 fL (80.0-100.0) Mean Corpuscular Hemoglobin 32.1 pg (28.0-32.0) Mean Corpuscular Hemoglobin Concent 34.2 g/dL (32.0-36.0) Red Cell Distribution Width 14.0 % (11.8-14.3) Platelet Count 132 10^3/uL (140-450) Mean Platelet Volume 8.4 fL (6.9-10.8) Neutrophils (%) (Auto) 55.0 % (37.0-80.0) Lymphocytes (%) (Auto) 26.2 % (10.0-50.0) Monocytes (%) (Auto) 16.8 % (0.0-12.0) Eosinophils (%) (Auto) 1.5 % (0.0-7.0) Basophils (%) (Auto) 0.5 % (0.0-2.0) Neutrophils # (Auto) 3.5 10 ^3/uL (1.6-8.6) Lymphocytes # (Auto) 1.6 10 ^3/uL (0.4-5.4) Monocytes # (Auto) 1.1 10 ^3/uL (0-1.3) Eosinophils # (Auto) 0.1 10 ^3/uL (0-0.8) Basophils # (Auto) 0 10 ^3/uL (0-0.2) Nucleated Red Blood Cells 0.2 % Prothrombin Time 10.3 sec (9.3-11.8) Prothrombin Time INR 0.97 (0.9-1.15) Activated Partial Thromboplast Time 28.1 SEC (24.5-34.5) Sodium Level 141 mmol/L (136-145) Potassium Level 4.1 mmol/L (3.5-5.1) Chloride Level 104 mmol/L (98-107) Carbon Dioxide Level 28 mmol/L (20-31) Anion Gap 9 (5-15) Blood Urea Nitrogen 7 mg/dL (9-23) Creatinine 0.95 mg/dL (0.700-1.30) Glomerular Filtration Rate Calc 78 mL/min (>90) BUN/Creatinine Ratio 7.4 (10.0-20.0) Serum Glucose 95 mg/dL (74-106) Calcium Level 8.5 mg/dL (8.7-10.4) Total Bilirubin 0.9 mg/dL (0.2-1.0) Aspartate Amino Transferase (AST) 130 U/L (13-40) Alanine Aminotransferase (ALT) 161 U/L (7-40) Alkaline Phosphatase 199 U/L (46-116) Total Protein 5.9 g/dL (5.7-8.2) Albumin 3.3 g/dL (3.2-4.8) Hepatitis A Antibody Total Positive (Negative) Hepatitis B Surface Antigen Negative (Negative) Hepatitis B Surface Antibody Negative (Negative) Hepatitis B Core Total Antibody Negative (Negative) Hepatitis C Antibody Negative (Negative) Urine Color Yellow (Yellow) Urine Clarity Clear (Clear) Urine pH 6.5 (5.0-9.0) Urine Specific [place] 1.019 (1.001-1.035) Urine Protein Negative (Negative) Urine Ketones Negative (Negative) Urine Blood Negative /uL (Negative) Urine Nitrite Negative (Negative) Urine Bilirubin Negative (Negative) Urine Urobilinogen 6 mg/dL (Negative) Urine Leukocyte Esterase Negative /uL (Negative) Urine RBC 2 /hpf (0 - 3) Urine Microscopic WBC 1 /HPF (0-3) Urine Squamous Epithelial Cells Few /hpf (<5) Urine Bacteria None seen /hpf (None Seen) Urine Hyaline Casts Few /lpf (0 - 2) Urine Glucose Normal mg/dL (Normal) Lipase 40 U/L (12-53) Other Laboratory Tests 11/08/25 06:01 Brief Hx & Hospital Course: Year-old male with a history of cholesterol BPH chronic constipation came in for abdominal pain found to have fecal impaction Fleet enema had good bowel movement and feels better surgical consult by Dr. Morelos for possible partial small bowel obstruction advised nonsurgical condition patient feels better being discharged home slightly elevated liver enzymes gallbladder ultrasound negative for gallstones or cholecystitis seen by GI Dr. Chase Johnson. Patient is discharged home on lactulose and Colace Consults/Reason for consult Surgeon Dr. Beltre Operations or Procedures CT abdomen pelvis without contrast Condition at Discharge: Fair Final Diagnosis/Problems List Intractable abdominal pain Fecal impaction status post enema, patient has had a good bowel movement today and feels better Partial bowel obstruction surgical consult by Dr. Beltre appreciated Ileus, unspecified Constipation Cholesterol BPH Elevated liver enzymes gallbladder ultrasound shows no gallstones or cholecystitis, GI consult by Dr. Chase Johnson appreciated Partial intestinal obstruction, unspecified as to cause Discharge Disposition: Home Discharge Instruct/Medications Diet: Regular Activity: Light activity Follow Up/Referral: Follow up with your primary Dr Medications: Lactulose Colace Transmitted to pharmacy Scheduled Docusate Sodium (Colace), 1 CAP PO BID Duloxetine HCl (Duloxetine HCl), 1 CAP PO DAILY, (Reported) Furosemide (Furosemide), 1 TAB PO DAILY, (Reported) Tamsulosin Hcl (Tamsulosin Hcl), 1 CAP PO DAILY, (Reported) Scheduled PRN Acetaminophen (Acetaminophen), 1 TAB PO Q8HPRN PRN for PAIN SCALE 1-3 OR TEMP>100.4, (Reported) Docusate Sodium (Docusate Sodium), 1 CAP PO TID PRN for FOR CONSTIPATION, (Reported) Lactulose (Lactulose), 10 GM PO DAILY PRN Trazodone Hcl (Trazodone Hcl), 0.5 TAB PO QHSP PRN for FOR INSOMNIA, (Reported) Miscellaneous Medications Atorvastatin Calcium (Atorvastatin Calcium), 1 TAB PO, (Reported) Cholecalciferol (Vitamin D3), 2,000 UNIT OR, (Reported) Clopidogrel Bisulfate (Clopidogrel), (Reported) Ibuprofen (Ibuprofen), (Reported) Senna (Senna), 2 TAB PO, (Reported) 35 (Time taken For discharge summary 35 minutes) Discharge Statement: "Patient was advised to return to the ER or call 911 if any headaches, dizziness, shortness of breath, chest pain, abdominal pain, bleeding, fevers, or worsening of medical condition. Patient was counseled about treatment plan, medications, possible side effects, patientverbalized understanding. All questions were answered to the best of my ability. This discharge took greater then 30 minutes in planning, reviewing documentation, counseling the patient, and discussing with other team members." ASSESSMENT ASSESSMENT Hospital Course Improved Assessment Intractable abdominal pain Fecal impaction status post enema, patient has had a good bowel movement today and feels better Partial bowel obstruction surgical consult by Dr. Beltre appreciated Ileus, unspecified Constipation Cholesterol BPH Elevated liver enzymes gallbladder ultrasound shows no gallstones or cholecystitis, GI consult by Dr. Chase Johnson appreciated Partial intestinal obstruction, unspecified as to cause Date of Service: Nov 10, 2025 Billing Provider: KAHLIL TRAN MD Common Visit Codes: 21219-RSH/OBS DISCH DAY >30min KAHLIL TRAN MD Nov 10, 2025 11:15
[2025-11-10 12:18] VITALS: BP 140/72; PULSE 84; RESP 18; TEMP 97.5; O2SAT 96
[2025-11-10 13:00] VITALS: BP 140/72; PULSE 84; RESP 18; TEMP 97.5; O2SAT 96
== END 2025-11-10 12:20 | disposition home or self-care (01) | DRG 389 ==
LOC: ER 16:41 → OVERFLOW 21:27 → EAST 23:10
PROVIDERS: ADMIT Family Medicine; ATTEND Family Medicine
DX: K56.41 Fecal impaction (principal); K56.690 Other partial intestinal obstruction; I10 Essential (primary) hypertension; N40.0 Benign prostatic hyperplasia without lower urinary tract symptoms; E78.5 Hyperlipidemia, unspecified; Z79.899 Other long term (current) drug therapy
CPT/HCPCS: 36415; 74018; 74176; 76705; 80053; 81001; 83690; 85025; 85610; 85730; 86704; 86706; 86708; 86803; 87340; 96361; 96374; 96375; G0378; J2405